=== PATIENT | female | born 1995 | race Caucasian/White ===

== ENCOUNTER 2023-03-11 07:00 | Outpatient (CLI) | payer OTHER, SELFPAY ==
--- NOTE | 2023-03-11 07:15 | CRLHL7_ITS ---
For Patients: As a result of the Cures Act, medical imaging exams and procedure reports are released immediately into your electronic medical record. You may view this report before your referring provider. If you have questions, please contact your health care provider. INDICATION: First trimester scan, establish dates. COMPARISON: None. TECHNIQUE: Real-time spicer-scale imaging of the pelvis was performed. FINDINGS: Sonographic imaging demonstrates a single living intrauterine gestation. The embryo demonstrates a regular cardiac rate measuring 168 beats per minute. The embryo`s crown-rump length measurement of 1.9 cm corresponds to a gestational age of 8 weeks 3 days with a sonographic due date of 10/18/2023. There is a normal-appearing yolk sac. There are no gross abnormalities noted within the embryo at this early state of development. The gestational sac has a normal appearance. There is no evidence of a perigestational hemorrhage. The amount of fluid within the sac appears appropriate for gestational age. The cervix is closed. The myometrium appears normal. The ovaries are of normal size. Echogenic focus within the right ovary. There are no suspicious fluid collections noted in the cul-de-sac. IMPRESSION: Single living intrauterine with sonographic gestational age 8 weeks 3 days and sonographic due date 10/18/2023. Dictated by Maurice Zhou MD @ 03/11/2023 8:59:22 AM (Electronically Signed)
== END 2023-03-11 07:01 | disposition home or self-care (01) ==
PROVIDERS: PCP Family Medicine; Visit Provider Physician Assistant
DX: Z34.91 Encounter for supervision of normal pregnancy, unspecified, first trimester (principal); Z3A.08 8 weeks gestation of pregnancy
CPT/HCPCS: 76817; 86703; 86803; 86850; 86900; 86901; 87340; 87491; 87591

== ENCOUNTER 2023-03-11 08:09 | Outpatient (CLI) | payer OTHER, SELFPAY | END 2023-03-11 08:10 | disposition home or self-care (01) | PROVIDERS: PCP Family Medicine; Visit Provider Physician Assistant | DX: Z34.91 Encounter for supervision of normal pregnancy, unspecified, first trimester (principal); Z3A.08 8 weeks gestation of pregnancy | CPT/HCPCS: 86592; 86703; 86762; 86787; 86803; 86850; 86900; 86901; 87086; 87340; 87491; 87591 ==

== ENCOUNTER 2023-06-04 12:09 | Outpatient (CLI) | payer OTHER, SELFPAY ==
--- NOTE | 2023-06-04 12:15 | CRLHL7_ITS ---
For Patients: As a result of the Century Cures Act, medical imaging exams and procedure reports are released immediately into your electronic medical record. You may view this report before your referring provider. If you have questions, please contact your health care provider. INDICATION: Evaluate anatomy. COMPARISON: 03/11/2023 TECHNIQUE: Real time spicer scale imaging of the fetus was performed as well as color Doppler analysis of the umbilical vessels. FINDINGS: Sonographic imaging demonstrates a single living intrauterine gestation. Fetus demonstrates a regular cardiac rate of 154 beats per minute. Fetus has a vertex position. The placenta lies posteriorly without evidence of placenta previa. The edge of the placenta is located 6.4 cm from the internal cervical os. Amniotic fluid volume appears normal. Single deepest vertical pocket: 4.4 cm. The cervix is closed and measures 4.1 cm in length. The composite ultrasound gestational age is calculated at 20 weeks 5 days with an estimated sonographic due date of 10/17/2023. The estimated weight is 355 grams which lies at the 39th %. The following biometric measurements were obtained: Biparietal diameter: 4.9 cm/20 weeks 6 days 60th% Head circumference: 18.3 cm/20 weeks 5 days 46th% Abdominal circumference: 15.5 cm/20 weeks 4 days 46th% Femur length: 3.3 cm/20 weeks 1 day 27th% The HC/AC ratio measures: 1.18 range (1.06-1.25) On anatomic survey, there is a normal appearance of the cerebral ventricles, cavum septi pellucidi, cisterna magna and cerebellum. The nose, lips, and facial profile appear normal. The cervical, thoracic and lumbar spine are well visualized and appear normal. There is a normal four-chamber heart view and the left and right ventricular outflow tracts appear normal. The diaphragm and stomach appear normal. The kidneys and bladder also appear normal. There is a normal three-vessel cord and cord insertion site. The four extremities appear normal. IMPRESSION: Normal OB ultrasound exam with concordance of clinical and sonographic dating. No intrinsic abnormalities noted on anatomic survey. Dictated by Maurice Zhou MD @ 06/04/2023 1:26:10 PM (Electronically Signed)
== END 2023-06-04 12:10 | disposition home or self-care (01) ==
LOC: US 12:11
PROVIDERS: PCP Family Medicine; Visit Provider Registered Nurse
DX: Z34.92 Encounter for supervision of normal pregnancy, unspecified, second trimester (principal); Z3A.20 20 weeks gestation of pregnancy
CPT/HCPCS: 76805

== ENCOUNTER 2023-07-30 11:30 | Outpatient (CLI) | payer OTHER, SELFPAY | END 2023-07-30 11:31 | disposition home or self-care (01) | LOC: NFLDREF 08-02 09:04 | PROVIDERS: PCP Family Medicine; Referring Provider Family Medicine; Visit Provider Obstetrics & Gynecology | DX: Z34.93 Encounter for supervision of normal pregnancy, unspecified, third trimester (principal); Z3A.28 28 weeks gestation of pregnancy | CPT/HCPCS: 86592 ==

== ENCOUNTER 2023-09-24 11:24 | Outpatient (CLI) | payer OTHER, SELFPAY ==
[2023-09-25 14:41] LABS: Strep B DNA Probe Negative (Negative); Strep B Susceptibility Needed? No
== END 2023-09-24 11:25 | disposition home or self-care (01) ==
LOC: NFLDREF 11:24
PROVIDERS: PCP Family Medicine; Visit Provider Obstetrics & Gynecology
DX: Z34.90 Encounter for supervision of normal pregnancy, unspecified, unspecified trimester (principal)
CPT/HCPCS: 87081; 87653

== ENCOUNTER 2023-10-13 02:18 | Inpatient (IN) | payer OTHER, SELFPAY ==
[2023-10-13] VITALS (16 sets, daily range): BP systolic 113–145; BP diastolic 57–84; PULSE 70–85; RESP 14–18; TEMP 36.6–37; O2SAT 97–100; BMI 34.1
[2023-10-13 02:13] LABS: Amnisure Rom* POSITIVE
[2023-10-13] MEDS: miSOPROStoL 25 MCG/0.25 TABLET PO (04:44)
[2023-10-13] MEDS: LIDOCAINE 1 % PF 30 ML INJECTION (06:12)
[2023-10-13] MEDS: OXYTOCIN 10 UNIT/ML INJ IM (06:13)
--- NOTE | 2023-10-13 06:37 | P.LDBA_ITS ---
Subjective History of Present Illness Narrative: Patient is being admitted to Labor and Delivery for PROM at term, followed by rapid labor. She is a 28 year old at 39 2/7 weeks gestation. She had SROM at 12:45 AM. Upon arrival to the hospital, she was not experiencing strong contractions, and her cervix was 2 / 50%. Her full history and physical was dictated by Dr. Mirza on 10/01/23. Please see this for details. Specific Issues/Plans . YORDY 10/18/2023 by first-trimester ultrasound. Spouse: Garrett. Baby: Boy! 1. Celiac disease with associated iron deficiency anemia diagnosed in October * Ferrous sulfate 325 every other day * Hemoglobin at 1st OB: 10.9: increase to 2 tabs PO QOD * 04/08/2023: Reviewed iron fortified cereals that are gluten free. 2. 04/08/2023:21 test: negative Tdap: Given, 08/13/23 Flu: Declined Covid: Declined RSV: Given, 08/27/23 OB - Problem Based A/P Additional Plan (1) Active labor: Status: Acute Plan: Patient went on to have successful vaginal after rapid progression in labor; see delivery note. Delivery/Labor/Induction Plan Induction method: per misoprostol protocol (single dose oral misoprostol) OB Exam Physical Exam Vital signs: Temp Pulse Resp BP Pulse Ox 98.5 F 77 16 145/73 H 100 10/13/23 04:38 10/13/23 06:26 10/13/23 04:38 10/13/23 06:26 10/13/23 04:39 Narrative: Physical exam: General: pushing Psych: Alert and oriented x3, full affect HEENT: Normocephalic, atraumatic Heart: Regular rate and rhythm, no murmur rub or gallop () Lungs: Clear to auscultation bilaterally () Abdomen: Soft, NT, gravid Pelvic exam: complete, +2
--- NOTE | 2023-10-13 06:44 | W.PM.VAGD1_ITS ---
Procedure Delivery date: 10/13/23 Procedure Done: Global Procedure Details: The patient is a 28 year-old G 1 P 0 admitted on 10/13/2023 at 39 Weeks, 2 Days gestation for premature rupture membranes at term.? Cervical exam on admission was 2 cm/50 % effaced/0 station with membranes ruptured in vertex presentation.? Contractions were not appearing regularly on toco, and patient was not feeling any strong contractions.? heart rate demonstrated baseline 135 bpm with moderate variability, positive accelerations, no decelerations; a category 1 tracing.? SROM had occurred at 12:45 a.m. with clear fluid. She had a single dose of oral misoprostol, and subsequently progressed in to labor. ? Labor Analgesia:? Nitrous oxide ? Pitocin:? No ? Labor onset:? Around 5:00 a.m. ? Complete:? 5:24 a.m. ? Pushing:? 5:25 a.m. ? heart tones during second stage were reassuring. Just prior to delivery, at the point of , there was a deceleration into the 80s. ? At 6:02 a.m. a viable male infant delivered in vertex OA presentation over intact perineum via vaginal delivery.? 's head delivered but anterior shoulder did not deliver after gentle guidance of the infant head downward. Shoulder dystocia was diagnosed. Infant restituted to LOT. At this point, patient was in lithotomy position, and knees were flexed to her chest. This alone did not result in delivery of anterior shoulder. Suprapubic pressure was performed by OB RN, which resulted in delivery of anterior shoulder. Total time from delivery of head to anterior shoulder was approximately 15 seconds. was placed on maternal abdomen, but cord was noted to be quite short.? Cord was clamped and cut after a 30 second delay.? Nose and mouth were bulb suctioned.? weight pending.? 8 at 1 minute and 9 at 5 minutes.? Shoulder dystocia: Yes, as above.? Nuchal cord: No. ? Placenta delivered spontaneously and complete at 6:23 a.m. with a 3 vessel cord. ? Mother and infant were stable after delivery. ? Lacerations:? Right labial laceration, extending to the right hymeneal ring, re paired with a running suture of 3-0 Vicryl after infiltration with a small amount of 1% lidocaine. ? Blood loss: 279 mL. Blood loss measurement type: QBL ? Sponge and needles counts are correct. Estimated blood loss (mL): 279 Infant Infant Gender: Male total score - 1 minute: 8 total score - 5 minute: 9
[2023-10-13 07:11] LABS: Basophils Percent Auto 0.1 % (0.0-3.0); Eosinophils Percent Auto 0.1 % (0.0-7.0); Hematocrit 36.2 % (33.0-51.0); Immature Granulocytes Pct Auto 0.5 %; Lymphocytes Percent Auto 5.6 % (20-44); Mean Corpuscular HGB Conc 33 gm/dL (32-36); Mean Corpuscular Hemoglobin 31 pg (26-34); Mean Corpuscular Volume 93 fL (80-100); Monocytes Percent Auto 3.2 % (0.0-11.0); Neutrophils Percent Auto 90.5 % (42.0-72.0); Platelet Count* 267 K/uL (140-440); RDW Coefficient of Variation % 13.9 % (11.5-15.5); Red Blood Count 3.91 m/uL (4.00-5.20); White Blood Count* 17.35 K/uL (4.50-11.00)
[2023-10-13 07:29] LABS: Slide Review Reflex No
[2023-10-13 07:44] LABS: Alanine Aminotransferase* 22 U/L (4-35); Aspartate Amino Transferase* 32 U/L (12-35); Creatinine* 0.6 mg/dL (0.5-1.5); Est. Creatinine Clearance* 131.85; Estimated Glomerular Filt Rate 126 ml/min
[2023-10-13 07:45] LABS: Blood Urea Nitrogen* 6 mg/dL (5-24)
[2023-10-14 00:20] VITALS: BP 130/78; PULSE 77; RESP 16; TEMP 36.9; O2SAT 96
[2023-10-14 04:12] VITALS: BP 119/84; PULSE 86; RESP 16; TEMP 36.7; O2SAT 97
[2023-10-14 07:03] LABS: Hemoglobin* 10.6 gm/dL (12.0-16.0)
[2023-10-14 07:56] VITALS: BP 113/78; PULSE 81; RESP 16; TEMP 36.6; O2SAT 97
[2023-10-14] MEDS: DOCUSATE SODIUM 100 MG CAPSULE PO (07:59)
[2023-10-14] MEDS: FERROUS SULFATE 325 MG TABLET PO (08:00)
--- NOTE | 2023-10-14 09:46 | PM.OBDSVD1 ---
DS: Providers Provider Date Seen: 10/14/23 Date of admission: 10/13/23 02:18 Primary care physician: Hortensia Fitzgerald CNP Admitting Clinician: Edith Samuel MD Attending Physician on discharge: Edith Samuel MD Date of Discharge: 10/14/23 DS: Diagnosis Discharge Diagnosis (1) Lactating mother: Status: Acute (2) care following vaginal delivery: Status: Acute (3) Iron deficiency anemia: Status: Acute Exam Narrative: Exam Narrative: GENERAL APPEARANCE:? normal affect, alert, no distress? MOOD:? appropriate? CHEST:? clear to auscultation and percussion? HEART:? regular rate and rhythm? ABDOMEN:? soft, non-tender the uterine fundus is 2 cm Below Umbilicus, Midline and is appropriate for the stage of recovery. ? PERINEUM:? mild edema of the perineum, there is a labial laceration that is healing well.? EXTREMITIES:? normal and no edema? Patient has no complaints? No active bleeding?? Doing well? She is requesting discharge home.? Const: Vital Signs, click to edit/add: Vital Signs - 24 hr 10/13/23 12:14 10/13/23 16:45 10/13/23 20:23 Temperature 98.6 F 98.6 F 98.3 F Pulse Rate [Pulse Oximeter] 78 78 78 Respiratory Rate 16 14 16 Blood Pressure [Ri ght Arm] 113/72 116/74 117/70 Pulse Oximetry 98 98 97 Oxygen Delivery Me thod Room Air Room Air Room Air 10/14/23 00:20 10/14/23 04:12 10/14/23 07:56 Temperature 98.4 F 98.0 F 97.9 F Pulse Rate [Pulse Oximeter] 77 86 81 Respiratory Rate 16 16 16 Blood Pressure [Ri ght Arm] 130/78 119/84 113/78 Pulse Oximetry 96 97 97 Oxygen Delivery Me thod Room Air Room Air Room Air Documenting provider has reviewed patient's vital signs: yes OB - DS: Summary Hospital Course Hospital Course: The patient is a 28 year old G 1 P 1 at 39.2 weeks gestation that was admitted to the Center on 10/13/23 for spontaneous labor. She had an uncomplicated vaginal delivery. She delivered a viable male . She is breast feeding. the patient has done well. The patient feels well.? The pain is well controlled with current medications.? She has no new complaints.? Urinary output is adequate and she is voiding without difficulty.? Has a good appetite, is tolerating a general diet, is passing flatus, and has not had a bowel movement.? Has small amount of rubra lochia.? She is ambulating well.?She is unsure what she wants for control. Options that are compatible with beast feeding were reviewed. She was planning on discharging home today but is now considering staying for extra breast feeding help. Peripartum Data delivery method: Vaginal Laceration description: Labial (right) Episiotomy description: None Gender: Male Discharge Plan: Home Status at Discharge Functional status at discharge: independent ambulation Overall status at discharge: patient is progressing back to baseline Time Spent with Patient Time attestation: Total time spent providing and/or coordinating discharge services: Discharge Plan Discharge Disposition: Home, Self-Care Date of Admission: 10/13/23 02:18 Attending Provider on Discharge: Torrie Clayton Primary Care Provider: Hortensia Fitzgerald Condition: Stable Anticipated Discharge Date/Time: 10/14/23 11:00 Discharge Medications: New docusate sodium 100 mg Capsule 100 mg PO DAILY Qty: 100 0RF Rx Instructions: Take1-2 tablets daily as needed for constipation. ibuprofen 600 mg Tablet 600 mg PO Q6H PRNQty: 60 0RF Continued with DHA-Folic Acid 400-32.5 mcg-mg tablet,chewable 1 tab PO DAILY PRN ferrous sulfate [Feosol] 325 mg (65 mg iron) tablet 325 mg PO Q OTHER DAY Patient Comments: BID QOD Discharge Orders: Discharge Order (Routine); Ordered 10/14/23 Ordered By: Torrie Clayton Patient Education: OB Vaginal/Breast Feeding Additional Instructions: Discharge instructions were reviewed with the patient including signs and symptoms of infection and home going medications.? Lifting Restrictions: 20 pounds for 6? weeks? ?? Do not drive while taking narcotic pain meds.? Off Work or School for 6 weeks.? ?? Symptoms to report to doctor:? -Bleeding that saturates more than one pad per hour? -Passing clots larger than the size of a golf ball? -Pain not relieved by prescribed medication? -Fever above 100.4 degrees Fahrenheit? -A foul vaginal odor? -Difficulty in emotions, mood and functions? -Thoughts of hurting yourself and/or ? -Painful, reddened area in your breast? -Any drainage, redness or tenderness in your IV/epidural site? -Severe headache that doesn't improve after taking medications? -Changes in vision, including temporary loss of vision, blurred vision, and/or light sensitivity? -Upper abdominal pain (usually under ribs on the right side)? -Decrease in urination or painful, frequent urinating? -Chest pain? -Shortness of breath? -Tenderness or pain with redness and/swelling in the calf(s) of your leg? ?? Follow Up in clinic in 2 and 6 weeks.? ?? consultation services are available to all mothers and babies for the first year after delivery.? To make an appointment, please call [phone].? Follow Up Appointments: [facility] [Provider Group] Forms: MyHealth Info Instructions
[2023-10-14 13:23] VITALS: BP 120/78; PULSE 81; RESP 14; TEMP 36.4; O2SAT 97
[2023-10-14 17:23] VITALS: BP 115/77; PULSE 81; RESP 14; TEMP 36.7; O2SAT 97
[2023-10-14 20:52] VITALS: BP 121/73; TEMP 36.8
[2023-10-15 04:06] VITALS: BP 123/81; RESP 16; TEMP 36.7
[2023-10-15 07:20] VITALS: BP 118/78; PULSE 77; RESP 16; TEMP 36.6; O2SAT 97
--- NOTE | 2023-10-15 07:57 | P.DS_ITS ---
DS: Providers Provider Date Seen: 10/15/23 Date of admission: 10/13/23 02:18 Primary care physician: Hortensia Fitzgerald CNP Admitting Clinician: Edith Samuel MD Attending Physician on discharge: Stephanie Clifford CNM DS: Diagnosis Discharge Diagnosis (1) care following vaginal delivery: Status: Acute (2) Lactating mother: Status: Acute Exam Narrative: Exam Narrative: GENERAL APPEARANCE:? normal affect, alert, no distress MOOD:? appropriate CHEST:? clear to auscultation HEART:? regular rate and rhythm ABDOMEN:? soft, non-tender the uterine fundus is at Umbilicus, Midline and is appropriate for the stage of recovery. PERINEUM:? mild edema of the perineum, there is a labial Laceration, that is healing well. EXTREMITIES:? normal and no edema Const: Vital Signs, click to edit/add: Vital Signs - 24 hr 10/14/23 13:23 10/14/23 17:23 10/14/23 20:52 Temperature 97.6 F 98.1 F 98.3 F Pulse Rate [Pulse Oximeter] 81 81 Respiratory Rate 14 14 Blood Pressure [Ri ght Arm] 120/78 115/77 121/73 Pulse Oximetry 97 97 Oxygen Delivery Me thod Room Air Room Air Room Air 10/15/23 04:06 10/15/23 07:20 Temperature 98.1 F 97.9 F Pulse Rate [Pulse Oximeter] 77 Respiratory Rate 16 16 Blood Pressure [Ri ght Arm] 123/81 118/78 Pulse Oximetry 97 Oxygen Delivery Me thod Room Air Room Air Documenting provider has reviewed patient's vital signs: yes OB - DS: Summary Hospital Course Hospital Course: Sam is a 28 y.o. G 1 P 1 who was admitted to [facility] for PROM. ?She had a NVD that was uncomplicated. The patient feels well. ?The pain is well controlled with current medications. ?She has no new complaints. ?She is breast feeding and reports things are going better today. The nurses have helped her overnight and she plans to see lactating this morning. the patient has done well.? Vitals have been stable.? She has remained afebrile.? Has a good appetite, is tolerating a general diet. ?She is voiding without difficulty.? She is passing gas and has not had a bowel movement.? She is ambulating and denies any dizziness.? Has small amount of rubra lochia. She had initially planned to leave yesterday but stayed for assistance. Problems: none plan: Discharge home with baby. Follow up in 2 weeks and 6 weeks. , may see if needed Hgb 10.6. Peripartum Data Infant delivery method: Vaginal Laceration description: Labial complications: none [place] Infant Gender: Male Infant Discharge Plan: Home Status at Discharge Functional status at discharge: independent ambulation Overall status at discharge: patient is progressing back to baseline Time Spent with Patient Time attestation: Total time spent providing and/or coordinating discharge services: Discharge Plan Discharge Disposition: Home, Self-Care Date of Admission: 10/13/23 02:18 Attending Provider on Discharge: Stephanie Clifford Primary Care Provider: Hortensia Fitzgerald Condition: Stable Anticipated Discharge Date/Time: 10/14/23 11:00 Discharge Medications: New docusate sodium 100 mg Capsule 100 mg PO DAILY Qty: 100 0RF Rx Instructions: Take1-2 tablets daily as needed for constipation. ibuprofen 600 mg Tablet 600 mg PO Q6H PRNQty: 60 0RF Continued with DHA-Folic Acid 400-32.5 mcg-mg tablet,chewable 1 tab PO DAILY PRN ferrous sulfate [Feosol] 325 mg (65 mg iron) tablet 325 mg PO Q OTHER DAY Patient Comments: BID QOD Discharge Orders: Discharge Order (Routine); Ordered 10/15/23 Ordered By: Torrie Clayton Patient Education: OB Over the Counter Medication Information, OB Vaginal/Breast Feeding Additional Instructions: Discharge instructions were reviewed with the patient including signs and symptoms of infection and home going medications Nothing vaginally for 6 weeks: no tampons or intercourse Off Work or School for 6 weeks 2-week visit: discuss infant feeding concerns, review control options and screen for anxiety/depression. 6-week visit for an annual exam. consultation services are available to all mothers and babies for the first year after delivery.? To make an appointment, please call [phone]. Activity Level: Activity as Tolerated Discharge Diet: Regular Follow Up Appointments: [facility] [Provider Group] Forms: MemberConnection Info Instructions
== END 2023-10-15 11:40 | disposition home or self-care (01) | DRG 807 ==
LOC: OB OUT 02:18 → OB 02:18
PROVIDERS: Admitting Provider Obstetrics & Gynecology; PCP Family Medicine; Visit Provider Obstetrics & Gynecology
DX: O42.02 Full-term premature rupture of membranes, onset of labor within 24 hours of rupture (principal); O66.0 Obstructed labor due to shoulder dystocia; O70.0 First degree perineal laceration during delivery; O99.02 Anemia complicating childbirth; Z37.0 Single live birth; D50.9 Iron deficiency anemia, unspecified; K90.0 Celiac disease; Z3A.39 39 weeks gestation of pregnancy
CPT/HCPCS: 36415; 59200; 82565; 84112; 84450; 84460; 84520; 85018; 85025; A9270; J2001; J2590

== ENCOUNTER 2024-11-09 12:52 | Outpatient (CLI) | payer OTHER, SELFPAY | END 2024-11-09 12:53 | disposition home or self-care (01) | LOC: US 12:53 | PROVIDERS: PCP Family Medicine; Visit Provider Physician Assistant | DX: Z34.91 Encounter for supervision of normal pregnancy, unspecified, first trimester (principal); O34.81 Maternal care for other abnormalities of pelvic organs, first trimester; N83.202 Unspecified ovarian cyst, left side; Z3A.01 Less than 8 weeks gestation of pregnancy | CPT/HCPCS: 76817; 83021; 86703; 86706; 86803; 86850; 86900; 86901; 87086; 87340; 87491; 87591 ==

== ENCOUNTER 2024-11-09 13:53 | Outpatient (CLI) | payer OTHER, SELFPAY ==
[2024-11-09 19:27] LABS: Chlamydia DNA Amplified* NOT DETECTED (No Detected); GC DNA Amplified* NOT DETECTED (No Detected)
== END 2024-11-09 13:54 | disposition home or self-care (01) ==
PROVIDERS: PCP Family Medicine; Visit Provider Physician Assistant
DX: Z34.91 Encounter for supervision of normal pregnancy, unspecified, first trimester (principal); Z3A.08 8 weeks gestation of pregnancy
CPT/HCPCS: 83020; 83021; 85660; 86592; 86703; 86704; 86706; 86762; 86787; 86803; 86850; 86900; 86901; 87086; 87340; 87491; 87591

== ENCOUNTER 2025-02-08 10:06 | Outpatient (CLI) | payer OTHER, SELFPAY ==
--- NOTE | 2025-02-08 10:15 | CRLHL7_ITS ---
For Patients: As a result of the 21st Century Cures Act, medical imaging exams and procedure reports are released immediately into your electronic medical record. You may view this report before your referring provider. If you have questions, please contact your health care provider. OB ULTRASOUND SURVEY YORDY by US: 06/27/2024. GA: 20 w, 1 d. INDICATION: anatomy scan. TECHNIQUE: Real time grayscale imaging of the fetus was performed. Evaluate anatomy. Transabdominal. position: Transverse, breech, multiple positions. Cervix: Visualized. Technique: Transabdominal. Length of closed cervix: 5.2 cm. Placenta/cord: Posterior. Technique: Transabdominal. Placenta tip to internal OS: 3.3 cm. Umbilical Cord: 3-vessel cord. Placenta insertion: Central. Amniotic Fluid: 5.2 cm SDP (greater than/equal to: 2- less than 8 cm). SURVEY: Observed Structures. Calvarium/Spine: Cerebellum: 2.0 cm, 20 w 2 d. Cisterna Magna: 4.0 mm. Nuchal Fold: 5.5 mm. Lateral Ventricle: 6.1 mm. CSP: Yes. Midline Falx: Yes. Choroid Plexus: Yes. Spine: Yes. Abdomen: Stomach: Yes. Abd Cord Insertion: Yes. Urinary Bladder: Yes. Kidneys: Yes. Diaphragm: Yes. Face: Nose/lips: Yes. Orbital view: Yes. Profile: Yes. Limbs: Upper Extremities: Yes. Lower Extremities: Yes. Hands: Yes. Feet: Yes. Vascular: 4-Chamber Heart: Yes. LVOT: Yes. RVOT: See impression 3VV: See impression 3VTV: See impression BPD: 4.6 cm. 20 w, 0 d, 43 percent. HC: 18.0 cm. 20 w, 3 d, 56 percent. AC: 16.0 cm. 21 w, 1 d, 76 percent. FL: 3.2 cm. 19 w, 6 d, 32 percent. FL/AC ratio: 19.79 percent. HC/AC ratio: 1.12. heart rate: 147 bpm. age by this US: 20 w, 2 d. YORDY by this US: 06/26/2025. EFW: 358.80 g. Weight: 13 oz. Percentile by YORDY: 67 percent. IMPRESSION: 1. Incomplete visualization of the cardiac structures due to position. Remainder of the anatomic survey, normal. Short term follow-up recommended. 2. Good correlation of clinical and sonographic dates. Maurice Zhou M.D. Diagnostic Radiologist [email or web address] [email or web address]/[email or web address] jj/Dictated by: Maurice Zhou MD @ 02/08/2025 12:07:00 PM (Electronically Signed)
== END 2025-02-08 10:07 | disposition home or self-care (01) ==
LOC: US 10:07
PROVIDERS: PCP Family Medicine; Visit Provider Obstetrics & Gynecology
DX: Z34.92 Encounter for supervision of normal pregnancy, unspecified, second trimester (principal); Z3A.20 20 weeks gestation of pregnancy
CPT/HCPCS: 76805

== ENCOUNTER 2025-03-12 12:05 | Outpatient (CLI) | payer OTHER, SELFPAY ==
--- NOTE | 2025-03-12 12:15 | CRLHL7_ITS ---
For Patients: As a result of the Cures Act, medical imaging exams and procedure reports are released immediately into your electronic medical record. You may view this report before your referring provider. If you have questions, please contact your health care provider. OBSTETRICAL ULTRASOUND ??? FOLLOW-UP, 03/12/2025 INDICATION: Follow-up heart views. CLINICAL HISTORY: YORDY by US: 06/27/2025 Gestational Age: 24 weeks 5 days COMPARISON: 02/08/2025 TECHNIQUE: Real-time spicer-scale transabdominal imaging of the fetus was performed. FINDINGS: Fetus: Single Cervix: Not visualized positioning: Vertex Amniotic Fluid: 6.8 cm SDP Placenta technique: Transabdominal Placenta position: Posterior heart rate: 141 bpm IMPRESSION: Normal RVOT, 3-vessel view and 3-vessel trachea view. MAURICE DE OLIVEIRA M.D. Diagnostic Radiologist [email or web address] Transcribed: 3:[address]/Dictated by: Mauirce De Oliveira MD @ 03/12/2025 3:47:00 PM (Electronically Signed)
== END 2025-03-12 12:06 | disposition home or self-care (01) ==
LOC: US 12:05
PROVIDERS: PCP Family Medicine; Visit Provider Obstetrics & Gynecology
DX: O35.BXX0 Maternal care for other (suspected) fetal abnormality and damage, fetal cardiac anomalies, not applicable or unspecified (principal); Z3A.24 24 weeks gestation of pregnancy
CPT/HCPCS: 76816

== ENCOUNTER 2025-04-09 10:35 | Outpatient (CLI) | payer OTHER, SELFPAY | END 2025-04-09 10:36 | disposition home or self-care (01) | LOC: NFLDREF 04-11 13:57 | PROVIDERS: PCP Family Medicine; Referring Provider Family Medicine; Visit Provider Obstetrics & Gynecology | DX: Z34.92 Encounter for supervision of normal pregnancy, unspecified, second trimester (principal); Z3A.24 24 weeks gestation of pregnancy | CPT/HCPCS: 86592 ==

== ENCOUNTER 2025-05-10 10:33 | Outpatient (CLI) | payer OTHER, SELFPAY ==
--- NOTE | 2025-05-10 10:45 | CRLHL7_ITS ---
For Patients: As a result of the Century Cures Act, medical imaging exams and procedure reports are released immediately into your electronic medical record. You may view this report before your referring provider. If you have questions, please contact your health care provider. OBSTETRICAL ULTRASOUND ??? FOLLOW-UP, 05/10/2025 INDICATION: Uterine size for dates discrepancy. CLINICAL HISTORY: YORDY by US: 06/27/2025 Gestational Age: 33 weeks 1 day COMPARISON: 03/12/2025, 02/08/2025, 11/09/2024. TECHNIQUE: Real-time spicer-scale transabdominal imaging of the fetus was performed. FINDINGS: Fetus: Single Cervix: Not visualized positioning: Vertex Amniotic Fluid: 6.3 cm SDP heart rate: 147 bpm BIOMETRY: BPD: 8.5 cm, 34 weeks 1 day, 73.9% HC: 31.4 cm, 35 weeks 2 days, 68.6% AC: 31.3 cm, 35 weeks 2 days, 95.1% FL: 6.3 cm, 32 weeks 4 days, 24.5% FL/AC Ratio: 20.12% HC/AC ratio: 1.00 EFW: 2427 grams; 5 lbs. 6 oz. age by this ultrasound: 34 weeks 2 days YORDY by this ultrasound: 06/19/2025 Percentile by YORDY: 80.0% IMPRESSION: 1. Sonographic gestational age 34 weeks 2 days and sonographic due date 06/19/2025. Sonographic age is 8 days ahead of the clinical age. 2. Estimated weight is 80th percentile. Abdominal circumference is 95th percentile. MAURICE DE OLIVEIRA M.D. Diagnostic Radiologist [email or web address] Transcribed: 12:[address]/Dictated by: Maurice De Oliveira MD @ 05/10/2025 11:46:00 AM (Electronically Signed)
== END 2025-05-10 10:34 | disposition home or self-care (01) ==
LOC: US 10:33
PROVIDERS: PCP Family Medicine; Visit Provider Obstetrics & Gynecology
DX: O26.843 Uterine size-date discrepancy, third trimester (principal); O36.5930 Maternal care for other known or suspected poor fetal growth, third trimester, not applicable or unspecified; Z3A.33 33 weeks gestation of pregnancy
CPT/HCPCS: 76816

== ENCOUNTER 2025-06-04 12:02 | Outpatient (CLI) | payer OTHER, SELFPAY ==
[2025-06-05 10:39] LABS: Strep B DNA Probe Negative (Negative)
[2025-06-05 10:42] LABS: Strep B Susceptibility Needed? No
== END 2025-06-04 12:03 | disposition home or self-care (01) ==
LOC: NFLDREF 12:03
PROVIDERS: PCP Family Medicine; Visit Provider Obstetrics & Gynecology
DX: Z34.93 Encounter for supervision of normal pregnancy, unspecified, third trimester (principal); Z3A.36 36 weeks gestation of pregnancy
CPT/HCPCS: 87081; 87653

== ENCOUNTER 2025-06-11 12:51 | Outpatient (CLI) | payer OTHER, SELFPAY ==
--- NOTE | 2025-06-11 13:00 | CRLHL7_ITS ---
For Patients: As a result of the Century Cures Act, medical imaging exams and procedure reports are released immediately into your electronic medical record. You may view this report before your referring provider. If you have questions, please contact your health care provider. OBSTETRICAL ULTRASOUND ??? FOLLOW-UP, 06/11/2025 INDICATION: History of shoulder dystocia. CLINICAL HISTORY: YORDY by Ultrasound: 06/27/2025 Gestational Age: 37 weeks 5 days COMPARISON: 05/10/2025, 03/12/2025, 02/08/2025 TECHNIQUE: Real-time spicer-scale transabdominal imaging of the fetus was performed. FINDINGS: Fetus: Single Cervix: Not visualized positioning: Vertex Amniotic Fluid: 4.3 cm SDP Placenta technique: Transabdominal Placenta position: Posterior, left wall heart rate: 142 bpm BIOMETRY: BPD: 9.1 cm, 37 weeks 1 day, 53.9% HC: 32.4 cm, 36 weeks 5 days, 10.5% AC: 35.0 cm, 39 weeks 0 days, 91.1% FL: 7.3 cm, 37 weeks 3 days, 43.7% FL/AC Ratio: 20.87% HC/AC ratio: 0.93 EFW: 3398 grams; 7 lbs. 8 oz. age by this ultrasound: 37 weeks 4 days YORDY by this ultrasound: 06/28/2025 Percentile by YORDY: 70.8% IMPRESSION: 1. The left renal pelvis measures 6.4 mm, considered within normal limits at this gestational age. 2. Sonographic gestational age is 37 weeks 4 days and sonographic due date is 06/28/2025. Good correlation with dates. Normal interval growth. 3. Estimated weight is 71st percentile. Abdominal circumference is 91st percentile. MAURICE DE OLIVEIRA M.D. Diagnostic Radiologist [email or web address] Transcribed: 4:[address]/Dictated by: Maurice De Oliveira MD @ 06/11/2025 2:50:00 PM (Electronically Signed)
== END 2025-06-11 12:52 | disposition home or self-care (01) ==
LOC: US 12:51
PROVIDERS: PCP Family Medicine; Visit Provider Obstetrics & Gynecology
DX: Z34.93 Encounter for supervision of normal pregnancy, unspecified, third trimester (principal); Z3A.37 37 weeks gestation of pregnancy
CPT/HCPCS: 76816

== ENCOUNTER 2025-06-20 05:57 | Inpatient (IN) | payer OTHER, SELFPAY ==
[2025-06-20] VITALS (49 sets, daily range): BP systolic 107–140; BP diastolic 55–84; PULSE 41–95; RESP 16; TEMP 36.6–37; O2SAT 96–100; BMI 34.6
--- NOTE | 2025-06-20 07:08 | P.LDBA_ITS ---
Subjective History of Present Illness Time Seen by Provider: 07:08 Date Seen: 06/20/25 Narrative: Patient is being admitted to Labor and Delivery for scheduled elective induction. She is a 30 year old at weeks gestation. Her full history and physical was dictated by Dr. Mirza on 06/11/25. Please see this for details. Active movement. Denies Ctx, LOF, vaginal bleeding or abnormal vaginal discharge. Specific Issues/Plans Partner: Garrett Son: Jaylen baby boy: [undecided] H&P: Yuki on 06/11/25 # celiac disease with associated iron deficiency anemia - Hgb normal at new Ob - 13.0 # Desires genetic screening [x] low risk NIPT/carrier screen - boy! #HepB indeterminant - received vaccine series as a child, low risk # cystic mass in the right ovary with echogenic solid component and areas of shadowing. This measures 2.0 x 1.3 x 2.0 cm today compared to 2.1 x 1.4 x 1.6 cm previously. Dermoid? # 15 sec shoulder dystocia with first delivery, resolved with suprapubic pressure. Infant 7 lbs 2 oz Growth scan at 37 week: [x] Opted for 39 week elective induction Imagin02/08/25: anatomy scan (prelim): variable position, posterior placenta without previa, 3 vessel cord, SDP 5.2 cm, normal visualized anatomy but unable to obtain multiple heart views. 03/12/25: Cephalic, 6.8 cm SDP, normal RVOT, 3-vessel view and 3-vessel trachea view. 05/10/25: Vertex, 6.3 cm SDP, BPD 73.9% HC 68.6%, AC 95.1%, FL 24.5%, EFW: 2427 grams; 5 lbs. 6 oz = 80.0% 06/11: EFW 3398g at 70.8%ile - BPD 54%, GC 10.5%, AC 91%, FL 44%. Vertex. FHR 142bpm. MVP 4.3cm. Vaccinations: COVID: Declined Flu: Declined Tdap: 04/25 RSV: N/A GBS: negative 06/04/25 RSV: NA as given in last 32 week mental health: 04/25/25 Last pap: [Only high-risk abnormal pap results in problem list] OB - Problem Based A/P Additional Plan (1) History of shoulder dystocia in prior : Status: Acute (2) : Status: Acute (3) Iron deficiency anemia: Status: Acute (4) Celiac disease: Status: Acute Plan - Admit for labor induction - Patient would benefit from some cervical ripening. Will start with 25 mcg of Cytotec vaginally and check in 3 hours. - NST: 140 bpm, moderate variability, +accelerations, negative deceleration. - [place]: Irritable OB Exam Physical Exam Vital signs: Pulse BP Pulse Ox 86 122/74 97 06/20/25 06:06 06/20/25 06:06 06/20/25 06:06 Narrative: Physical exam: General: No acute distress Psych: Alert and oriented x3, full affect HEENT: Normocephalic, atraumatic Lungs: Unlabored breathing Neuro: No focal deficit. Mentating appropriately Pelvic exam: /-2 per RN check.
[2025-06-20 13:37] LABS: Hematocrit* 40.0 % (33.0-51.0); Hemoglobin* 13.2 gm/dL (12.0-16.0); Immature Granulocytes Abs Auto 0.04 K/uL (0.00-0.30); Immature Granulocytes Pct Auto 0.4 %; Mean Corpuscular HGB Conc 33 gm/dL (32-36); Mean Corpuscular Hemoglobin 31 pg (26-34); Mean Corpuscular Volume 95 fL (80-100); RDW Coefficient of Variation % 13.4 % (11.5-15.5); Red Blood Count* 4.20 m/uL (4.00-5.20); White Blood Count* 10.25 K/uL (4.50-11.00)
[2025-06-20 13:53] LABS: Lymphocytes Absolute Auto 1.40 K/uL (0.90-2.90)
[2025-06-20 13:54] LABS: Slide Review Reflex No
[2025-06-20] MEDS: LACTATED RINGERS 1000 ML 1,000 ML 124 ML IV ×2 (14:36→17:46)
[2025-06-20] MEDS: OXYTOCIN 30 unit/500 ML in NS 30 UNIT/500 ML BAG IVPB (14:38)
--- NOTE | 2025-06-20 18:40 | PM.OBPNL ---
Subjective Time Seen by Provider: 18:40 Date Seen: 06/20/25 Objective Vital Signs: Last Vital Signs Temp 98.6 F 06/20/25 15:40 Pulse 83 06/20/25 17:51 Resp 16 06/20/25 15:40 BP 125/81 06/20/25 17:51 Pulse Ox 99 06/20/25 17:31 Pelvic Exam Dilation (cm): 2 Effacement (%): 60 Station: -2 Comments: AROM with clear fluid.
[2025-06-20] MEDS: LIDOCAINE 2% (PF) 5 ML VIAL EPIDURAL (19:09)
[2025-06-20] MEDS: ePHEDrine sulfate 5 MG/ML inj 10 MG IVP (19:13)
[2025-06-20] MEDS: ROPIVACAINE 0.2% 100 ml 100 ML 12 MG EPIDURAL (19:16)
--- NOTE | 2025-06-20 19:31 | PM.ANBPRC ---
[facility] Social History Narrative: SOCIAL HISTORY: Occupation: Finance and network security consultant. Marital status: no. Scientology/cultural needs: no. Chemical or radiation exposure: no. Pre- tobacco use: no. Pre- alcohol use: no. Current tobacco use: no. Current alcohol use: no. Recreational drug use: no. Dietary restrictions: no. Blood transfusion acceptable in an emergency: yes. PSYCHOSOCIAL HISTORY: History of depression or currently depressed: no. Current or past physical, emotional, or sexual mistreatment: no. Problems that will make it hard to make it to appointments: no. What is your current living situation?: I presently have a place to live Problems where you live: no known problems In the past 12 months, utilities in danger of being shut off: no In past 12 months, lack of transportation kept you from medical appts, meetings, work, or getting things needed for daily living: no In the past 12 mos, have been you worried that your food would run out before you had money to buy more?: never true In the past 12 mos, the food you bought just didn't last and you didn't have money to buy more?: never true Smoking Status: Never smoker How often does anyone, including family, friends and others, physically hurt you: never How often does anyone, including family, friends and others, insult or talk down to you: never How often does anyone, including family, friends and others, threaten you with harm: never How often does anyone, including family, friends and others, scream or curse at you: never Meds Home Medications and Allergies Home Medications ?Medication ?Instructions ?Recorded ?Confirmed ?Type 103-folic ac 400 1 tab PO DAILY PRN 03/11/23 06/20/25 History mcg-omega-3 32.5 mg-dha-fish oil chew tablet ( with DHA and Folic Acid) cholecalciferol (vitamin D3) 125 125 mcg PO QDAY 11/09/24 06/20/25 History mcg (5,000 unit) capsule acetaminophen 325 mg tablet 650 mg PO Q6H PRN 03/12/25 06/20/25 History (Tylenol) ferrous sulfate 325 mg (65 mg 325 mg PO QDAY 04/09/25 06/20/25 History iron) tablet (Feosol) Allergies Allergy/AdvReac Type Severity Reaction Status Date / Time gluten Allergy Verified 06/18/25 08:31 Results Labs Labs: Laboratory Results - last 24 hr 06/20/25 13:25 WBC 10.25 RBC 4.20 Hgb 13.2 Hct 40.0 MCV 95 MCH 31 MCHC 33 RDW Coeff of Colin 13.4 Plt Count 274 Neut % (Auto) 80.8 H Lymph % (Auto) 13.8 L [place] % (Auto) 4.3 Eos % (Auto) 0.6 Baso % (Auto) 0.1 Neut # (Auto) 8.30 H Lymph # (Auto) 1.40 [place] # (Auto) 0.40 Eos # (Auto) 0.06 Baso # (Auto) 0.01 Abs Immat Gran (auto) 0.04 Imm/Tot Granulo (auto) 0.4 Blood Type A Positive Antibody Screen NEGATIVE Vital Signs Vital Signs: Last Vital Signs Temp 98.2 F 06/20/25 19:27 Pulse 87 06/20/25 19:29 Resp 16 06/20/25 15:40 BP 131/78 06/20/25 19:29 Pulse Ox 99 06/20/25 19:19 Weight: 97.25 kg Height: 167.64 cm Anesthesia Procedures Epidural Insertion Patient Location: OB Start Time: 18:46 Stop Time: 19:46 Start Date: 06/20/25 Stop Date: 06/20/25 Reason for Block: procedure for pain Patient Position: sitting Performed By: Bobbi Sharma Preanesthetic Checklist: IV checked, risks and benefits discussed, surgical consent, monitors and equipment checked, pre-op evaluation, timeout performed and anesthesia consent Prep: chlorhexidine gluconate Monitoring: blood pressure monitoring, continuous pulse oximetry and heart rate Approach: midline Vertebral Space: lumbar (1-5) Epidural Technique: CORDELIA saline Needle Type: Tuohy needle Injection Technique: continuous catheter (continuous catheter) Needle gauge: 17 Needle Length (cm): 10 cm Needle Insertion Depth (cm): 7 Catheter Gauge: 19 Catheter Type: multi-orifice Catheter at skin depth (cm): 15 Test Dose Result: negative and lidocaine 1.5% with epinephrine 1 to 200,000
[2025-06-20] MEDS: LACTATED RINGERS 1000 ML 1,000 ML 125 ML IV (20:29)
--- NOTE | 2025-06-20 22:44 | W.PM.VAGDEL1 ---
Procedure Delivery date: 06/20/25 Procedure Done: Global Delivery augmentation: rupture of membranes Delivery monitor: external FHT Route of delivery: Laceration description: Labial (Right ) Delivery repair: Chromic Anesthesia type: Epidural Disposition: floor Narrative: Sam is a 30 year-old admitted on 06/20/25 at 39 and 0/7 weeks gestation for elective IOL due to history of shoulder dystocia. GBS negative Labor Analgesia: Epidural Pitocin: For induction of labor and active management of 3rd stage AROM: 06/20/25 at 1743, with clear blood tinged fluid Complete: 06/20/25 at 2140 Pushin06/20/25 at 2151 heart tones during second stage were I. At 215 a viable male delivered in vertex OA presentation over intact via spontaneous vaginal delivery. The infant's body was delivered in the usual manner without difficulty. The was placed on maternal abdomen. The cord was clamped and cut after a 30-60 second delay. The nose and mouth were bulb suctioned. weight: pending. 8 at 1 minute and 9 at 5 minutes. Shoulder dystocia: No. Nuchal cord: No Placenta delivered spontaneously and complete at 2201 with a 3-vessel cord. Placenta examined and noted to be complete. Placenta was not sent to pathology. The cervix and vagina were inspected for lacerations. Laceration(s): Right labial, repaired with 1 figure of 8 with 2-0 chromic Complications: None Estimated blood loss: 50 cc Cord gases: No indicated Sponge and needles counts are correct. Mother and infant were stable at the time of this note.
[2025-06-21] VITALS (7 sets, daily range): BP systolic 113–124; BP diastolic 73–82; PULSE 66–89; RESP 16; TEMP 36.6–36.7; O2SAT 95–98
[2025-06-21 06:22] LABS: Hemoglobin* 11.9 gm/dL (12.0-16.0)
[2025-06-21] MEDS: DOCUSATE SODIUM 100 MG CAPSULE PO (07:57)
--- NOTE | 2025-06-21 08:26 | PM.OBPNVD1 ---
OB - PN:Subj Subjective Date Seen: 06/21/25 Patient comments OB post-: no complaints, pain well controlled, tolerating diet and flatus present Anderson status: and doing well Anderson feeding status: exclusively Narrative: Sam feels well.? Her pain is well controlled with current medications.? She has no new complaints.? Urinary output is adequate and she is voiding without difficulty.? Has a good appetite, is tolerating a general diet, is passing flatus, and has not had a bowel movement.? Has scant amount of rubra lochia.? She is ambulating well. She is and feels it is going well at this time. ? OB - PN: Obj Exam Physical Exam: Vital signs: Temp Pulse Resp BP Pulse Ox O2 Del Method 98.1 F 70 16 116/74 95 Room Air 06/21/25 07:38 06/21/25 07:38 06/21/25 07:38 06/21/25 07:38 06/21/25 07:38 06/21/25 07:38 Narrative: GENERAL APPEARANCE:? normal affect, alert, no distress? MOOD:? appropriate? CHEST:? clear to auscultation and percussion? HEART:? regular rate and rhythm? BREASTS: soft, nontender, no erythema, nipples intact? ABDOMEN:? soft, non-tender the uterine fundus is U/2 and is appropriate for the stage of recovery.? PERINEUM:? mild edema of the perineum, there is a labial laceration that is healing well.? EXTREMITIES:? normal and no edema? OB - PN: Obj Data Labs Labs: Laboratory Results - last 24 hr 06/20/25 06/21/25 13:25 06:13 WBC 10.25 RBC 4.20 Hgb 13.2 11.9 L Hct 40.0 MCV 95 MCH 31 MCHC 33 RDW Coeff of Colin 13.4 Plt Count 274 Neut % (Auto) 80.8 H Lymph % (Auto) 13.8 L [place] % (Auto) 4.3 Eos % (Auto) 0.6 Baso % (Auto) 0.1 Neut # (Auto) 8.30 H Lymph # (Auto) 1.40 [place] # (Auto) 0.40 Eos # (Auto) 0.06 Baso # (Auto) 0.01 Abs Immat Gran (auto) 0.04 Imm/Tot Granulo (auto) 0.4 Blood Type A Positive Antibody Screen NEGATIVE OB - PN: A/P Delivery Assessment and Plan (1) Iron deficiency anemia: Status: Acute (2) Celiac disease: Status: Acute (3) Lactating mother: Status: Acute (4) care following vaginal delivery: Status: Acute Plan day: 1 Plan: routine care Comments: Anticipate discharge home tomorrow
--- NOTE | 2025-06-21 13:01 | PM.ANPOST ---
Post Anesthesia Note Post Anesthesia Note Patient seen: Inpatient Respiratory Status: adequate Cardiovascular Status: adequate Mental Status: baseline Pain: adequate Temp: baseline Anesthetic awareness: N/A Complications: none Follow care: none
[2025-06-22 01:58] VITALS: BP 137/87; PULSE 71; RESP 16; TEMP 36.4; O2SAT 97
[2025-06-22 08:00] VITALS: BP 123/79; PULSE 77; RESP 16; TEMP 36.7; O2SAT 97
--- NOTE | 2025-06-22 08:14 | PM.OBDSVD1 ---
DS: Providers Provider Date Seen: 06/22/25 Date of admission: 06/20/25 05:57 Primary care physician: Hortensia Fitzgerald CNP Admitting Clinician: Veronica Olmstead MD Attending Physician on discharge: Stephanie Clifford APRN, CNM DS: Diagnosis Discharge Diagnosis (1) care following vaginal delivery: Status: Acute (2) Lactating mother: Status: Acute Exam Narrative: Exam Narrative: GENERAL APPEARANCE:? normal affect, alert, no distress MOOD:? appropriate CHEST:? clear to auscultation HEART:? regular rate and rhythm ABDOMEN:? soft, non-tender the uterine fundus is 1 below Umbilicus, Midline and is appropriate for the stage of recovery. PERINEUM:? mild edema of the perineum, there is a labial laceration that is healing well. EXTREMITIES:? normal and no edema Const: Vital Signs, click to edit/add: Vital Signs - 24 hr 06/21/25 12:40 06/21/25 16:45 06/21/25 20:26 Temperature 98.1 F 98.0 F 97.9 F Pulse Rate [Pulse Oximeter] 79 80 89 Respiratory Rate 16 16 16 Blood Pressure [Le ft Arm] 124/82 119/79 115/80 Pulse Oximetry 97 98 98 Oxygen Delivery Me thod Room Air Room Air Room Air 06/22/25 01:58 06/22/25 08:00 Temperature 97.6 F 98.1 F Pulse Rate [Pulse Oximeter] 71 77 Respiratory Rate 16 16 Blood Pressure [Le ft Arm] 137/87 123/79 Pulse Oximetry 97 97 Oxygen Delivery Me thod Room Air Room Air Documenting provider has reviewed patient's vital signs: yes OB - DS: Summary Hospital Course Hospital Course: Sam is a 30 y.o. G 2 P 2 who was admitted to [facility] & [facility] for elective IOL for hx of shoulder dystocia. ?She had a NVD that was uncomplicated. The patient feels well. ?The pain is well controlled with current medications. ?She has no new complaints. ?She is breast feeding and reports things are going well. the patient has done well.? Vitals have been stable.? She has remained afebrile.? Has a good appetite, is tolerating a general diet. ?She is voiding without difficulty.? She is passing gas and has not had a bowel movement.? She is ambulating and denies any dizziness.? Has small amount of rubra lochia. Problems: none Discharge home with baby.? Follow up in 2 weeks and 6 weeks.? , may see if needed? Hgb 11.9.?? For pain control of perineum, breast and pelvic pain, take 600 mg Ibuprofen every 6 hours as needed by mouth or 1000 mg acetaminophen (Tylenol) every 6 hours by mouth as needed. You can alternate these so you are taking something every 3 hours as needed. A heating pad can also be used for your abdomen or breasts. You may also take docusate sodium up to twice daily to soften your stools and help to prevent constipation. You may wean off of it when your stools return to normal.? Peripartum Data delivery method: Vacuum Laceration description: Labial complications: none [place] Infant Gender: Male Discharge Plan: Home Status at Discharge Functional status at discharge: independent ambulation Overall status at discharge: patient is progressing back to baseline Time Spent with Patient Time attestation: Total time spent providing and/or coordinating discharge services: Time spent: Less than 30 minutes Discharge Plan Discharge Disposition: Home, Self-Care Date of Admission: 06/20/25 05:57 Attending Provider on Discharge: Stephanie Clifford Primary Care Provider: Hortensia Fitzgerald Condition: Stable Anticipated Discharge Date/Time: 06/22/25 12:00 Discharge Medications: New docusate sodium 100 mg Capsule 100 mg PO DAILY Qty: 90 0RF acetaminophen 500 mg Tablet 1,000 mg PO Q6H PRNQty: 0 0RF ibuprofen 600 mg Tablet 600 mg PO Q6H PRNQty: 0 0RF Continued cholecalciferol (vitamin D3) 125 mcg (5,000 unit) capsule 125 mcg PO QDAY with DHA-Folic Acid 400-32.5 mcg-mg tablet,chewable 1 tab PO DAILY PRN ferrous sulfate [Feosol] 325 mg (65 mg iron) tablet 325 mg PO QDAY Patient Comments: BID QOD acetaminophen [Tylenol] 325 mg tablet 650 mg PO Q6H PRN Discharge Orders: Discharge Order (Routine); Ordered 06/22/25 Ordered By: Stephanie Clifford Patient Education: OB Over the Counter Medication Information, OB Vaginal/Breast Feeding Additional Instructions: Discharge instructions were reviewed with the patient including signs and symptoms of infection and home going medications Nothing vaginally for 6 weeks: no tampons or intercourse Off Work or School for 6 weeks 2-week visit: discuss infant feeding concerns, review control options and screen for anxiety/depression. 6-week visit for an annual exam. consultation services are available to all mothers and babies for the first year after delivery.? To make an appointment, please call [phone]. Activity Level: Activity as Tolerated Discharge Diet: Regular Follow Up Appointments: [facility] [Provider Group] Forms: Patient Belongings, MyHealth Info Instructions
== END 2025-06-22 10:54 | disposition home or self-care (01) | DRG 807 ==
PROVIDERS: Admitting Provider Obstetrics & Gynecology; PCP Family Medicine; Visit Provider Obstetrics & Gynecology
DX: O99.02 Anemia complicating childbirth (principal); Z37.0 Single live birth; D50.9 Iron deficiency anemia, unspecified; O70.0 First degree perineal laceration during delivery; K90.0 Celiac disease; Z3A.39 39 weeks gestation of pregnancy
CPT/HCPCS: 01967; 36415; 59200; 85018; 85025; 86592; 86850; 86900; 86901; A9270; J2795; J7120